=== PATIENT | female | born 1995 | race Caucasian/White ===

== ENCOUNTER 2020-10-02 12:24 | Emergency (ER) | payer MEDICAID, SELFPAY ==
[2020-10-02 12:37] VITALS: BP 120/92; PULSE 85; RESP 18; TEMP 36.7; O2SAT 100
--- NOTE | 2020-10-02 12:45 | DI.CT_ITS ---
EXAM: CT ABDOMEN PELVIS W TECHNIQUE: Imaging Protocol: Axial computed tomography images with coronal and sagittal reformatted images were created and reviewed CONTRAST MATERIAL: Intravenous: Omnipaque 350 Contrast volume:96 ml Contrast route:IV - Oral: no COMPARISON: No exams were available for comparison FINDINGS: ABDOMEN: Lung Bases: Normal where visualized. Liver: Normal density. No measurable mass. Gallbladder and biliary tract: No radiodense calculus or dilation. Pancreas: Normal density, no abnormal calcifications or inflammatory process. Spleen: Normal. Kidneys: Normal size, contour and axis. No radiodense stones or obstructive uropathy. No masses seen. Adrenal glands: No masses seen. Abdominal Aorta: Abdominal portion non-dilated. Abdominal Aorta: Abdominal portion non-dilated. Lymph nodes: With in normal limits. PELVIS: Bladder: Symmetric distention, no gross wall thickening. Bowel: Normal appendix. A large amount of stool seen throughout the colon. No obstruction or bowel wall thickening. Peritoneal cavity: No ascites, collection or mesenteric inflammatory response. Reproductive organs: There is a large, mainly fatty density lesion involving the left ovary, measurin g 6.3 cm in diameter. There is a calcification within the lesion. These are consistent with a terat amanda. A small similar appearing smaller lesion is noted on the right ovary, measuring 3 cm. There ar e no findings to suggest torsion. Retroverted uterus. Bones: Within normal limits. Impression: Bilateral ovarian dermoids, the the left measuring 6.3 cm and the right measuring 3 cm in diameter. No evidence of torsion. RADIATION DOSE DELIVERED: 838.74mGy.cm Total DLP DATA REPOSITORY: All CT scans at this facility are submitted to the National Radiology Data Registry (NRDR) Dose Index Registry (DIR) with the [employer] (ACR). RADIATION OPTIMIZATION: All CT scans at this facility use at least one of these dose optimization te chniques: automated exposure control; mA and/or kV adjustment per patient size (includes targeted exa ms where dose is matched to clinical indication); or iterative reconstruction.
--- NOTE | 2020-10-02 12:49 | ED.GENADUL_ITS ---
Discharge Plan Disposition Patient Disposition: HOME Condition: Stable Discharge Details Clinical Impression: Teratoma of pelvis Primary Care Provider: Unknown,Unknown ED Provider: Iram Ruiz Home Meds and New Rx's Prescriptions: No Action One-A-Day Womens Formula 18 mg iron-400 mcg-500 mg Tablet 2 tab PO DAILY RF: 0 Discharge Instructions Instructions: Ovarian Cyst (ED) Additional Instructions: Follow-up with [facility] within 3 to 5 days. Return to the ED for any severe increase in abdominal pain, vaginal bleeding, fever, vomiting or any concerns. Follow up with primary care provider in 3-5 days. Return to ED sooner if any worsening or concerns. Increase oral fluids. Please take Tylenol or Ibuprofen with food every 4-6 hours as needed for pain and swelling. Referrals: Maria Teresa Michael MD [ [facility] STAFF [facility]YSICIAN] - Milana Lara MD [ [facility] STAFF PHYSICIAN] - Discharge Data Discharge Date/Time-TO BE ENTERED AT DEPARTURE: 10/02/20 16:18 Medical Decision Making 24-year-old female presents to the ED with chief complaint of left upper quadrant abdominal pain x3 weeks. Pain radiates around to umbilicus area, has been seen by primary care for the same pain and had some negative lab work-up. There is associated intermittent nausea, no vomiting, no fever or dysuria. She does report constipation. Denies any vaginal bleeding or discharge. She does state that she has irregular periods and did have some breakthrough bleeding approximately 2 weeks ago. She denies any drugs or alcohol. She states she does vape daily. Work-up ordered including CBC, CMP, lipase, urinalysis, urine and will order CT abdomen pelvis. Labs are largely within normal limits. Patient reevaluation she is continue to be hemodynamically stable. Has not required any pain medications here in department. FINDINGS: Liver: Normal. No mass. Gallbladder and bile ducts: Normal. No calcified stones. No ductal dilation. Pancreas: Normal. No ductal dilation. Spleen: Normal. No splenomegaly. Adrenal glands: Normal. No mass. Kidneys and ureters: Normal. No hydronephrosis. Stomach and bowel: Large amount of stool throughout the large bowel. Appendix: Appendix normal. Intraperitoneal space: No free fluid within the pelvis or within the dependent portions of the peritoneum. Vasculature: Unremarkable. No abdominal aortic aneurysm. Lymph nodes: Unremarkable. No enlarged lymph nodes. Urinary bladder: Unremarkable as visualized. Reproductive: teratomas/dermoids on the right and left adnexa that on the left measuring approximately 6.3 cm and that on the right measuring approximately 2.9 cm. Bones/joints: Unremarkable. No acute fracture. Soft tissues: Unremarkable. Other findings: No acute intra-abdominal process. No inflammatory process. No obstruction. IMPRESSION: 1. Teratomas/dermoids on the right and left adnexa that on the left measuring approximately 6.3 cm and that on the right measuring approximately 2.9 cm. 2. No acute intra-abdominal process. No inflammatory process. No obstruction. 3. No free fluid within the pelvis or within the dependent portions of the peritoneum. 4. Large amount of stool throughout the large bowel. 5. Appendix normal. 1509: [facility] paged to consult. 1550: [facility] is busy in a at this time awaiting callback. 1555: Spoke with Maria Teresa Michael [facility] who I discussed patient case in details with she recommends follow-up with [facility] in the near future no further recommendations given to her treatment currently. We discussed home care with patient strict return instructions, verbalized understanding. All of her questions and concerns were answered to the best my ability. This text was generated using [employer] unlimited dictation system, please disregard any oddities of phrase or misspellings. HPI General Mode of arrival: ambulatory . Date/Time Provider Initiated Documentation: 10/02/20 12:38 . Limitations to Documentation: no limitations . Information obtained by: patient . HPI Narrative: 24-year-old female presents to the ED with chief complaint of left upper quadrant abdominal pain x3 weeks. Pain radiates around to umbilicus area, has been seen by primary care for the same pain and had some negative lab work-up. There is associated intermittent nausea, no vomiting, no fever or dysuria. She does report constipation. Denies any vaginal bleeding or discharge. She does state that she has irregular periods and did have some breakthrough bleeding approximately 2 weeks ago. She denies any drugs or alcohol. She states she does vape daily. Related Data Home Medications Medication Instructions Recorded Confirmed [id number] carb-vit K 2 tab PO DAILY 10/02/20 10/02/20 [One-A-Day Womens Formula] Allergies Allergy/AdvReac Type Severity Reaction Status Date / Time No Known Allergies Allergy Unverified 10/02/20 12:43 General Stated Complaint: Abd Prob JAX: 3 Review of Systems Narrative: Constitutional: Negative for weight loss, alert and oriented, well groomed, normal body habitus, appears comfortable. HEENT: Denies trauma, headaches, blurry vision, nasal discharge, sore throat, trouble swallowing. Chest: Denies chest pain, palpitations, irregular rhythm, hypertension. Respiratory: Denies Shortness of breath, cough, hemoptysis. GI: Denies vomiting, diarrhea, positive left upper quadrant abdominal pain, positive constipation. : Denies dysuria, hematuria, flank pain, rectal bleeding. Neuro: Denies dizziness, blurry vision, weakness, syncope, headache or facial numbness. Hematologic: Denies easy bruising, intolerance to heat or cold, hair loss. [facility] Social History Smoking/Tobacco Use Status: Current every day Tobacco Type: e-cigarettes Smoking risk assessment performed?: Yes Alcohol Intake: current Alcohol Intake frequency: holidays/special occasions only Substance use type: does not use Do you feel safe at home: Yes Do you feel safe in your relationship?: Yes Exam Narrative Exam Narrative: Constitutional: Alert and oriented x3. Appears stated age. Normal body habitus. Head: Normocephalic, no trauma. Eyes: Pupils PERRLA, Red reflex noted, EOM's intact. Eyelids symmetrical without lesions, discharge, or swelling. ENT: Bilateral TM's WNL, External ear normal to inspection, no mastoid TTP, swelling, or erythema, Nasal turbinates WNL, no nasal discharge. Normal dentition, Posterior pharynx WNL, no exudate. Chest: RRR, Normal S1, S2, distal pulses intact. Resp: Lungs clear to auscultation bilaterally, no wheezes, rales, or rhonchi. Abdomen: Soft, nondistended, bowel sounds normoactive all 4 quadrants, does have some mild left upper quadrant tenderness with palpation. No CVA tenderness bilaterally. Musculoskeletal: Normal gait, 5/5 strength to all four extremities. Skin: No suspicious rashes or lesions. Capillary refill less than 2 sec. Neurologic: Cranial nerves II-XII intact. Alert and oriented x 3. DTR's intact. Hematologic/Lymphatic: No ecchymosis, no lymphadenopathy. Course Vital Signs Vital signs: Vital Signs Temperature 36.7 C 10/02/20 12:37 Pulse 85 10/02/20 12:37 Respiratory Rate 18 10/02/20 12:37 Blood Pressure 120/92 H 10/02/20 12:37 Pulse Oximetry 100 10/02/20 12:37 Temperature 36.7 C 10/02/20 12:37 Temperature Source Skin 10/02/20 12:37 Pulse 85 10/02/20 12:37 Respiratory Rate 18 10/02/20 12:37 Respiratory Effort 10/02/20 12:41 Blood Pressure 120/92 H 10/02/20 12:37 Blood Pressure Position Sitting 10/02/20 12:37 Pulse Oximetry 100 10/02/20 12:37 Oxygen Delivery Method Room Air 10/02/20 12:37 Oxygen Flow Rate 0 10/02/20 12:37 Pain Level 0 10/02/20 12:37
[2020-10-02 13:03] LABS: Bilirubin Negative (Negative); Blood Negative (Negative); Clarity Clear (Clear); Glucose Negative (Negative); Ketones Negative (Negative); Leukocyte Esterase Negative (Negative); Nitrite Negative (Negative); Specific Gravity 1.015 (1.005-1.025); Urobilinogen 0.2 EU/dL (Up TO 0.2)
[2020-10-02 13:08] LABS: Abs Immature Grans 0.02 10^3/uL (0.0-0.06); Absolute Basophil Count 0.04 10^3/uL (0.0-0.2); Absolute Eosinophil Count 0.29 10^3/uL (0.0-0.7); Absolute Lymphocyte Count 1.77 10^3/uL (1.2-3.4); Absolute Monocyte Count 0.39 10^3/uL (0.1-0.8); Absolute Neutrophil Count 3.39 10^3/uL (1.2-6.7); Basophils % 0.7; Eosinophils % 4.9; HGB 14.5 g/dL (11.2-15.7); Immature Grans % 0.3; MCH 28.7 pg (27.0-33.0); MCV 87.1 fL (80-95); Monocytes % 6.6; Neutrophils % 57.5; Nucleated RBC 0 %; Platelet Count 254 10^3/uL (130-400); RBC 5.05 10^6/uL (3.93-5.22); RDW 12.2 % (11.7-14.6); RDW-SD 39.2 fL
[2020-10-02] MEDS: Normal Saline 1,000 ML 125 ML IV (13:14)
[2020-10-02 13:21] LABS: ALT 21 U/L (14-59); AST 7 U/L (15-37); Albumin 4.2 g/dL (3.4-5.0); Alkaline Phosphatase 52 U/L (46-116); Anion Gap 4.9 mmol/L (3-11); BUN 9 mg/dL (7-18); Bilirubin, Total 0.4 mg/dL (0.2-1.0); CO2 28.1 mmol/L (21.0-32.0); CREATININE 0.8 mg/dL (0.55-1.02); Calcium 8.7 mg/dL (8.5-10.1); Chloride 104 mmol/L (98-107); Glucose 82 mg/dL (74-106); Lipase 107 U/L (73-393); Sodium 137 mmol/L (136-145); Total Protein 7.5 g/dL (6.4-8.2)
[2020-10-02] MEDS: Normal Saline - Diluent 50 ML VIAL IV (13:42)
[2020-10-02] MEDS: Omnipaque 350 MG/ML 100 ML BTL IJ (13:42)
[2020-10-02] MEDS: Normal Saline Flush 10 ML SYR IVP (13:52)
--- NOTE | 2020-10-02 14:54 | DI.VRAD_ITS ---
PROCEDURE INFORMATION: Exam: CT Abdomen And Pelvis With Contrast Exam date and time: 10/02/2020 1:50 PM Age: 24 years old Clinical indication: Other: Luq abd pain TECHNIQUE: Imaging protocol: Computed tomography of the abdomen and pelvis with contrast. Contrast material: OMNIPAQUE 350; Contrast volume: 96 ml; Contrast route: INTRAVENOUS (IV); COMPARISON: No relevant prior studies available. FINDINGS: Liver: Normal. No mass. Gallbladder and bile ducts: Normal. No calcified stones. No ductal dilation. Pancreas: Normal. No ductal dilation. Spleen: Normal. No splenomegaly. Adrenal glands: Normal. No mass. Kidneys and ureters: Normal. No hydronephrosis. Stomach and bowel: Large amount of stool throughout the large bowel. Appendix: Appendix normal. Intraperitoneal space: No free fluid within the pelvis or within the dependent portions of the peritoneum. Vasculature: Unremarkable. No abdominal aortic aneurysm. Lymph nodes: Unremarkable. No enlarged lymph nodes. Urinary bladder: Unremarkable as visualized. Reproductive: teratomas/dermoids on the right and left adnexa that on the left measuring approximately 6.3 cm and that on the right measuring approximately 2.9 cm. Bones/joints: Unremarkable. No acute fracture. Soft tissues: Unremarkable. Other findings: No acute intra-abdominal process. No inflammatory process. No obstruction. IMPRESSION: 1. Teratomas/dermoids on the right and left adnexa that on the left measuring approximately 6.3 cm and that on the right measuring approximately 2.9 cm. 2. No acute intra-abdominal process. No inflammatory process. No obstruction. 3. No free fluid within the pelvis or within the dependent portions of the peritoneum. 4. Large amount of stool throughout the large bowel. 5. Appendix normal. Dictated and Authenticated by: Eduin Valdez MD. Ordering:CINTHIA Walden MD
[2020-10-02 15:31] LABS: HCG Quant, Pregnancy 1 mIU/mL (1-3)
[2020-10-02 16:16] VITALS: BP 97/64; TEMP 36.4
== END 2020-10-02 16:18 | disposition home or self-care (01) ==
PROVIDERS: Emergency Provider Registered Nurse Emergency
DX: D27.0 Benign neoplasm of right ovary (principal); D27.1 Benign neoplasm of left ovary
CPT/HCPCS: 36415; 80053; 81025; 83690; 96360; 96361; 99285; 74177; 81003; 83735; 84702; 85025; 99284; J3490

== ENCOUNTER 2020-10-31 10:45 | Outpatient (CLI) | payer MEDICAID, SELFPAY ==
[2020-10-31 12:02] LABS: Source Nasal/Nares
[2020-10-31 12:15] LABS: HGB 14.1 g/dL (11.2-15.7); MCH 28.9 pg (27.0-33.0); MCHC 33.6 % (32.0-36.0); MCV 86.1 fL (80-95); MPV 11.1 fL (8.0-11.0); Platelet Count 273 10^3/uL (130-400); RBC 4.88 10^6/uL (3.93-5.22); RDW 12.3 % (11.7-14.6); WBC 7.55 10^3/uL (4.4-10.8)
[2020-10-31 12:20] LABS: Anion Gap 6.5 mmol/L (3-11); BUN 13 mg/dL (7-18); CO2 27.5 mmol/L (21.0-32.0); Chloride 107 mmol/L (98-107); Potassium 4.3 mmol/L (3.5-5.1); Sodium 141 mmol/L (136-145)
[2020-10-31 15:20] LABS: COVID-19 PCR Negative (Negative)
== END 2020-10-31 10:46 | disposition home or self-care (01) ==
LOC: LBO 10:46
PROVIDERS: Visit Provider Obstetrics & Gynecology Gynecology
DX: D36.7 Benign neoplasm of other specified sites (principal); R10.12 Left upper quadrant pain; N91.5 Oligomenorrhea, unspecified; Z01.818 Encounter for other preprocedural examination; Z01.812 Encounter for preprocedural laboratory examination
CPT/HCPCS: 36415; 80051; 84520; 85027; 86850; 86900; 86901

== ENCOUNTER 2020-11-02 07:28 | Day surgery (SDC) | payer MEDICAID, SELFPAY ==
[2020-11-02] VITALS (8 sets, daily range): BP systolic 100–126; BP diastolic 49–75; PULSE 48–80; RESP 11–21; TEMP 36.1–36.5; O2SAT 97–100
[2020-11-02] MEDS: Lactated Ringers 1,000 ML 125 ML IV (08:14)
--- NOTE | 2020-11-02 11:40 | OVAR_PTH ---
PATIENT: Sonam Reno LOC: [facility] U#:[id number] AGE/SX: 24/F ROOM: RE11/02/[address]: Milana Lara : 1995 BED: DIS: 11/02/2020 SPEC #: [id number] RECD: 11/02/20 12:55 STATUS: SAVANNAH REOlivier #: [id number] SMITH: 11/02/20 11:[address]: Milana Lara DEPT: Surgical Specimen RECD BY: Teri Pedro ENTERED: 11/02/20 12:56 SP TYPE: JOANA BARRIOS DR: Lore Milligan Tissues: 1 - OVARY BIOPSY 2 - OVARY BIOPSY Procedures: GROSS AND MICRO LEVEL 5 Comments: [id number]
[2020-11-02] MEDS: Bupivacaine 0.25% Pres-Free 30 ML VIAL (12:30)
--- NOTE | 2020-11-02 12:45 | W.PM.DSUDISC ---
Discharge Plan Disposition Patient Disposition: HOME Condition: Fair Discharge Details Attending Provider: Milana Lara Primary Care Provider: Lore Milligan Home Meds and New Rx's Prescriptions: No Action One-A-Day Womens Formula 18 mg iron-400 mcg-500 mg Tablet 2 tab PO DAILY RF: 0 Discharge Instructions Additional Instructions: make an appointment for a 2 week postop check with Dr. Lara You may take Ibuprofen and percocet every 6 hours. I have called in a prescription for both medications to your pharmacy You have a ParaGard IUD inside your uterus. Once a month you should check your cervix for the string at the opening to your uterus. You may remove the skin glue covering your incisions in 4 days. Stand Alone Forms: DSU Post Gynecology Surgery Activity:: Activity as Tolerated Diet:: As Tolerated Discharge Orders Discharge Orders: Discharge Order (Routine); Ordered 11/02/20 Ordered By: Milana Lara DS: Diagnosis Discharge Diagnosis (1) Mature cystic teratoma of both ovaries: Status: Acute (2) H/O ovarian cystectomy: Status: Acute
[2020-11-02] MEDS: fentaNYL 100 MCG/2 ML VIAL IVP ×2 (13:26→13:39)
--- NOTE | 2020-11-03 17:00 | W.PM.OP ---
Operative Note Operative Note DATE OF PROCEDURE: 11/02/20 PRE-OP DIAGNOSIS: bilateral ovarian dermoid cysts, Pelvic pain, menstrual irregularity POST-OP DIAGNOSIS: same PROCEDURE: Bilateral laparoscopic ovarian cystectomies SURGEON: Milana Lara DEPUTY CORONER INVESTIGATOR: Yessi Stahl ANESTHESIA TYPE: General LMA/ETT Refer to Anesthesia Record ESTIMATED BLOOD LOSS: 50 PATHOLOGY: other (Left and right ovarian teratomas) COMPLICATIONS: None Patient was transported to: PACU Patient's condition: stable Indications: 24yo G0 female with diagnosis ofsymptomatic bilateral ovarian teratomas who requested definitive therapy. Teratomas were diagnosed at the time of a [facility] emergency visit for abdominal pain. Findings: Left ovary, enlarged with smooth walled ovarian cyst that had contents of woods liquid fat and blond hair. The right ovary was considerably smaller and was not opened during the procedure. Procedure Description: Patient was taken to the operating room where she is placed in the dorsal supine position and general endotracheal anesthesia administered without difficulty. She was then placed in the dorsal lithotomy position prepped and draped in the usual sterile fashion. A Wilkinson catheter was placed to gravity drainage and a Tara uterine manipulator was inserted into the uterus and remained in place during the surgical procedure. SCDs were applied. No antibiotics were required. A surgical timeout was performed. The umbilical fold was infiltrated with quarter percent Marcaine without epinephrine. A scalpel was then used to make a 12mm vertical skin incision in the umbilical fold. Two penetrating towel clips were used to tent up the skin and through the periumbilical incision and a Veres needle was introduced into the abdomen and intra-abdominal placement confirmed by a drop in the intra-abdominal pressure. Once a pneumoperitoneum was established a 12 mm Visiport was placed under direct visualization and intra-abdominal placement confirmed by use of the laparoscope. Patient was then placed in Trendelenburg position. The skin was then infiltrated with quarter percent Marcaine without epinephrine at two sites approximately 6 cm diagonally from the umbilical port and the skin incised and two 5 mm lower ports were placed under direct visualization. The pelvis was carefully inspected. The left ovary was approximately 7 centimeters in diameter smooth and smooth walled. A monopolar scissors was then used to cauterize and incise the serosal surface of the ovary exposing a tissue plane that was carefully dissected off of the underlying cyst. Approximately two thirds of the cyst wall was exposed when there was a puncture of the cyst wall and woods liquid lipid leak from the cyst. Suction aspirator was used to irrigate and aspirate the contents of the left ovarian cyst that had leaked out into the abdominal cavity. Once cyst fluid had been aspirated the remaining ovarian serosa was from the cyst wall and the cyst removed from the body of the ovary. The left teratoma was then placed in Endo Catch bag and delivered through the 12 mm umbilical port. Once again the operative abdomen and pelvis was copiously irrigated with normal saline and the fluid suctioned aspirated. Right adnexa where the serosal surface of the right ovary was cauterized with monopolar scissors and incised with the scissors which allowed the serosal surface to be peeled off of the underlying right ovarian teratoma. The intact teratoma was then freed from the right ovary, placed in Endo Catch bag, and delivered through the 12 mm port without complication. The specimen bed on the right ovary with the cyst had been extracted was hemostatic. A LigaSure bipolar electrocautery device was used to cauterize any bleeding areas on the specimen bed of the left ovary. This the pelvis and the specimen sites of the teratomas were copiously irrigated and suction aspirated with excellent hemostasis noted and no remaining teratoma contents in the upper abdomen, pelvis sidewalls or cul-de-sac. The lower 2 trochars were removed under direct visualization, the pneumoperitoneum reduced and the 12 mm trocar was removed. Rectus fascia was reapproximated with interrupted suture of 0 Vicryl and the skin of all trocar sites was reapproximated using 4-0 Monocryl. Skin glue was applied to the incisions. The patient was awakened extubated and transported recovery in stable condition all sponge lap needle counts correct x2.
== END 2020-11-02 15:14 | disposition home or self-care (01) ==
PROVIDERS: PCP Family Medicine; Visit Provider Obstetrics & Gynecology Gynecology
PROC: (CPT 58662; principal; 2020-11-02 09:00)
DX: D27.1 Benign neoplasm of left ovary (principal); D27.0 Benign neoplasm of right ovary; F17.210 Nicotine dependence, cigarettes, uncomplicated; N92.6 Irregular menstruation, unspecified
CPT/HCPCS: 58662; 88305; 88307; J1100; J1885; J2250; J2405; J2704; J3010

== ENCOUNTER 2020-12-14 23:38 | Emergency (ER) | payer MEDICAID, SELFPAY ==
--- NOTE | 2020-12-14 23:43 | ED.GENADUL_ITS ---
Discharge Plan Disposition Patient Disposition: HOME Condition: Good Discharge Details Clinical Impression: Symptoms involving urinary system, Abdominal cramping, Constipation Primary Care Provider: Lore Milligan ED Provider: Tom Balderrama Home Meds and New Rx's Prescriptions: Continued ParaGard T 380A 380 square mm intrauterine device 1 device intrauterine ONCE RF: 0 Discharge Instructions Instructions: Constipation (ED) Additional Instructions: Your urine does not appear to be infected based on laboratory findings. Your blood work is also unremarkable. Unclear why all the urinary symptoms this evening. May be related to bladder spasm. Your abdominal exam itself is benign. Would try increasing water intake, fiber intake and using MiraLAX once a day for your constipation. If you continue to have urinary symptoms, abdominal cramping, follow-up with primary care or with [facility]. Return to ED for worsening/persistent abdominal pain, repeated vomiting, fever, other concerns. Referrals: [facility] [Provider Group] Lore Milligan [Primary Care Provider] - Medical Decision Making Patient presenting with onset of urinary symptoms this evening which certainly appeared to be UTI related. Second complaint of abdominal cramping and nausea with associated constipation over the last 5 days. She is afebrile here and looks well. Vitals are normal. Abdomen is benign. She is not having abdominal pain currently. Patient laparoscopic surgery but unremarkable postop course. Just seen by [facility] last week for IUD check. I do not think imaging is necessary at this point in regards to her abdominal pain. Urine and urinalysis sent. Will check abdominal labs to be sure no significant abnormalities. Patient urine negative. Urinalysis dip positive for trace ketones and trace blood. Microscopic is negative for UTI. Patient was treated with Pyridium for urinary symptoms. No antibiotic given. White count normal. Chemistry unremarkable. Liver function and lipase normal. Unclear etiology for patient's urinary symptoms unless she has developed bladder spasms tonight. There is no evidence of UTI. Abdomen again benign on exam and patient without pain currently. Recommend managing the constipation with increase fluid intake, increase fiber intake, MiraLAX usage daily until soft stool. If continued significant urinary symptoms or continue abdominal cramping and discomfort follow-up with primary care or [facility]. Return to ED for wors ening/persistent abdominal pain, fever, back pain, persistent vomiting, other concerns. Medical Records Medical records reviewed: Yes I reviewed the patient's medical records. Medical records narrative: Patient status post laparoscopic ovarian cystectomy a little over 1 month ago. Lab Data Lab results reviewed: Yes I reviewed the patient's lab results. Lab results narrative: No evidence of UTI. Unremarkable laboratory studies. HPI General Mode of arrival: ambulatory . Date/Time Provider Initiated Documentation: 12/14/20 23:40 . Limitations to Documentation: no limitations . Information obtained by: patient, RN notes reviewed and old records reviewed . HPI Narrative: Patient presents to with complaint of dysuria, frequency, urgency that started this evening. Patient also reports abdominal cramping in the periumbilical area on and off for the last 5 days. She is having difficulty eating or drinking because it seems to make the cramping worse. It also seems to make her nauseated but she has not had any vomiting. She feels bloated and reports constipation though she has had bowel movements they have not been normal for her. The week before she was seen for an IUD check. She was having significant menstrual cramps at that time. Since then menstruation cycle has stopped and the pelvic pain has resolved. The abdominal cramping seems different to her. The urinary symptoms were sudden onset this evening. She denies any fever or chills. She denies any back or flank pain. She has not seen blood in her urine. She does not have abdominal pain at this point in time here in the emergency department. Related Data Home Medications Medication Instructions Recorded Confirmed copper 380 square mm intrauterine 1 device INTRAUTERINE ONCE 12/02/20 12/15/20 device Allergies Allergy/AdvReac Type Severity Reaction Status Date / Time No Known Allergies Allergy Unverified 12/15/20 00:08 General JAX: 3 Review of Systems Narrative: As documented in HPI otherwise negative as below. Const: no fever, chills, weakness Resp: no cough, SOB, pleuritic pain CV: no CP, diaphoresis, edema, syncope GI: no vomiting, diarrhea Neuro: no headache, numbness, focal weakness, confusion PFSH Medical History Mature cystic teratoma of both ovaries 11/03/20. Bilateral ovarian cystectomy Oligomenorrhea previous hx prior to teratoma removal Tobacco use Surgical History H/O ovarian cystectomy 11/02/20. Laparoscopic bilateral ovarian cystectomy of teratomas. H/O wisdom tooth extraction Family History Mother Cancer Melanoma on her face. S/p surgical excision Father Heart disease Social History Smoking/Tobacco Use Status: Former Tobacco Use Quit Date: 10/18/20 Smoking risk assessment performed?: Yes Alcohol Intake: current Alcohol Intake frequency: holidays/special occasions only Drug use: Never Substance use type: does not use Do you feel safe at home: Yes Do you feel safe in your relationship?: Yes Exam Narrative Exam Narrative: Const: WDWN female in NAD. HEENT: NC/AT. Normal facial exam. Eyes: Normal conjunctiva and sclera. Neck: Supple. Trachea midline. Lungs: Normal respiratory effort. Cor: Good radial pulses. GI: Soft. NT/ND. No guarding or rebound. Pelvic: Deferred Neuro: A+O x 3. Normal speech, mentation, gait. Cranial nerves II - XII grossly intact. No gross motor or sensory deficit. Ext: No C/C/E. Skin: Warm and dry without rash.
[2020-12-14 23:44] VITALS: BP 108/70; PULSE 60; RESP 16; TEMP 36.7; O2SAT 100
[2020-12-15] MEDS: Phenazopyridine 100 MG TAB PO (00:15)
[2020-12-15 00:30] LABS: Abs Immature Grans 0.04 10^3/uL (0.0-0.06); Absolute Basophil Count 0.06 10^3/uL (0.0-0.2); Absolute Eosinophil Count 0.58 10^3/uL (0.0-0.7); Absolute Lymphocyte Count 3.23 10^3/uL (1.2-3.4); Absolute Monocyte Count 0.54 10^3/uL (0.1-0.8); Absolute Neutrophil Count 5.22 10^3/uL (1.2-6.7); Basophils % 0.6; HCT 39.7 % (36.0-46.0); HGB 13.5 g/dL (11.2-15.7); Immature Grans % 0.4; Lymphocytes % 33.4; MCH 29.3 pg (27.0-33.0); MCV 86.3 fL (80-95); MPV 10.9 fL (8.0-11.0); Monocytes % 5.6; Nucleated RBC 0 %; Platelet Count 312 10^3/uL (130-400); RDW 12.4 % (11.7-14.6); RDW-SD 38.8 fL; WBC 9.67 10^3/uL (4.4-10.8)
[2020-12-15 00:41] LABS: Bilirubin Negative (Negative); Blood Trace-intact (Negative); Clarity Clear (Clear); Glucose Negative (Negative); Ketones Trace mg/dL (Negative); Leukocyte Esterase Negative (Negative); Nitrite Negative (Negative); Specific Gravity 1.025 (1.005-1.025); Urobilinogen 0.2 EU/dL (Up TO 0.2)
[2020-12-15 00:44] LABS: RBC 0-2 HPF (0-2); WBC Negative HPF (0-5)
[2020-12-15 00:45] LABS: Bacteria Rare HPF (Negative); C & S Indicated? No; Casts Negative LPF (Negative); Crystals Negative HPF (Negative); Epithelial Cells Rare HPF (Negative); Mucus Negative (Negative)
[2020-12-15 00:47] LABS: ALT 23 U/L (14-59); AST 9 U/L (15-37); Albumin 4.2 g/dL (3.4-5.0); Alkaline Phosphatase 47 U/L (46-116); Anion Gap 11.7 mmol/L (3-11); BUN 18 mg/dL (7-18); Bilirubin, Total 0.3 mg/dL (0.2-1.0); CO2 25.3 mmol/L (21.0-32.0); CREATININE 0.9 mg/dL (0.55-1.02); Calcium 9.1 mg/dL (8.5-10.1); Chloride 104 mmol/L (98-107); Glucose 99 mg/dL (74-106); Lipase 107 U/L (73-393); Potassium 3.7 mmol/L (3.5-5.1); Sodium 141 mmol/L (136-145); Total Protein 7.4 g/dL (6.4-8.2)
== END 2020-12-15 01:12 | disposition home or self-care (01) ==
PROVIDERS: Emergency Provider Emergency Medicine; PCP Family Medicine
DX: R10.33 Periumbilical pain (principal); R30.0 Dysuria; R35.0 Frequency of micturition; K59.00 Constipation, unspecified
CPT/HCPCS: 36415; 80053; 81025; 83690; 99283; 81003; 81015; 85025

== ENCOUNTER → 2022-01-31 02:57 | Outpatient (CLI) | payer MEDICAID, SELFPAY | PROVIDERS: PCP Family Medicine; Visit Provider Registered Nurse Maternal Newborn ==

== ENCOUNTER 2023-06-07 12:12 | Emergency (ER) | payer MEDICAID, SELFPAY ==
[2023-06-07 12:14] VITALS: BP 111/78; PULSE 90; RESP 20; TEMP 36.9; O2SAT 97
--- NOTE | 2023-06-07 12:30 | DI.US_ITS ---
Exam(s) US PELVIS TRANSVAGINAL EXAM: US PELVIS TRANSVAGINAL CLINICAL HISTORY: heavy vaginal bleeding TECHNIQUE: Transabdominal and transvaginal imaging was performed using standard protocol. COMPARISON: CT CT ABDOMEN PELVIS W from 10/02/2020 FINDINGS: UTERUS: Retroverted. 6.0 x 2.7 x 4.2 cm Endometrium: IUD in place within endometrium. No endometrial thickening. Myometrium: Unremarkable. Cervix: Unremarkable. OVARIES: Right: Cyst or mass: None. Left: Cyst or mass: Echogenic shadowing lesion adjacent to the left ovary measuring 2.8 x 2.4 x 2.6 c m. This may represent a fatty teratoma. Patient has a history of previous teratomas with removal in 2020. DOPPLER: Color: Symmetric and uniform flow to both ovaries. No hyperemia. CUL-DE-SAC: Free fluid: None. IMPRESSION: 1. Normal-appearing uterus with IUD in place. 2. 2.8 centimeter echogenic left adnexal region could represent a teratoma. CT or MRI could be perfo rmed for further evaluation. DATA REPOSITORY:
--- NOTE | 2023-06-07 12:37 | ED.GENADUL_ITS ---
Discharge Plan Disposition Patient Disposition: Home Condition: Good Discharge Details Clinical Impression: Abnormal vaginal bleeding Primary Care Provider: Lore Milligan ED Provider: Joycelyn Fajardo Home Meds and New Rx's Prescriptions: No Action spironolactone 50 mg tablet 50 mg PO DAILY Patient Comments: has not taken in years 06/07/23 fluticasone propionate [Flonase Allergy Relief] 50 mcg/actuation spray,suspension 2 spray intranasal DAILY Rx Instructions: administer into each nostril ParaGard T 380A 380 square mm intrauterine device 1 device intrauterine ONCE Rx Instructions: as a single dose escitalopram oxalate 5 mg tablet 5 mg PO DAILY lisdexamfetamine [Vyvanse] 30 mg capsule 30 mg PO DAILY Patient Comments: TAKE ONE CAPSULE BY MOUTH EVERY MORNING Discharge Instructions Instructions: Abnormal (Dysfunctional) Uterine Bleeding (ED) Additional Instructions: Call your [employer] provider today to schedule an appointment to followup on your visit here and to discuss your ultrasound results. Return to the emergency department for new or worsening symptoms, including lightheadedness, feeling like you are going to pass out, or if you have any other concerns. Medical Decision Making 27yo F with hx of irregular periods, teratoma removal in 2020, copper IUD in place, presenting with heavy vaginal bleeding for 5 days, consistently saturating a pad in less than hour. No symptomatic anemia, mild uterine cramping consistent with her typical periods. Vital signs reassuring, no tachycardia. After labs drawn, slightly nauseated; given PO zofran with good effect. On exam she has scant blood in the vaginal vault, slow bleeding from cervical os. Labs reviewed as below, CBC & CMP reassuring with no anemia, serum negative. Pelvic ultrasound as below, possible left teratoma. On reassessment she remains well appearing with reassuring vital signs, hemodynamically stable, asymptomatic. Appropriate to followup with her outpatient providers. Discharged home; discharge instructions including return precautions were reviewed with patient who verbalized understanding. All questions were answered and they are in full agreement with the plan. Imaging Data Radiologic Study: Imaging: Ultrasound Radiologist's impression: IMPRESSION: 1. Normal-appearing uterus with IUD in place. 2. 2.8 centimeter echogenic left adnexal region could represent a teratoma.? CT or MRI could be performed for further evaluation. Lab Data Lab results reviewed: Yes I reviewed the patient's lab results. Labs: Laboratory Tests Range/Units 06/07/23 06/07/23 12:50 12:50 WBC (4.4-10.8) 10^3/uL 5.11 RBC (3.93-5.22) 10^6/uL 4.52 Hgb (11.2-15.7) g/dL 13.2 Hct (36.0-46.0) % 39.3 MCV (80-95) fL 87 MCH (27.0-33.0) pg 29.2 MCHC (32.0-36.0) % 33.6 RDW (11.7-14.6) % 12.3 Plt Count (130-400) 10^3/uL 264 MPV (8.0-11.0) fL 10.7 Immature Gran % 0.2 Neutrophils % 56.3 Lymphocytes % 32.1 Monocytes % 6.1 Eosinophils % 4.5 Basophils % 0.8 Nucleated RBC % (0.0-0.3) % 0.0 Absolute Neutrophils (1.2-6.7) 10^3/uL 2.88 Absolute Lymphocytes (1.2-3.4) 10^3/uL 1.64 Absolute Monocytes (0.1-0.8) 10^3/uL 0.31 Absolute Eosinophils (0.0-0.7) 10^3/uL 0.23 Absolute Basophils (0.0-0.2) 10^3/uL 0.04 Sodium (136-145) mmol/L 137 Potassium (3.5-5.1) mmol/L 3.8 Chloride (98-107) mmol/L 103 Carbon Dioxide (21.0-32.0) mmol/L 27.3 Anion Gap (3-11) mmol/L 6.7 BUN (7-18) mg/dL 16 Creatinine (0.55-1.02) mg/dL 0.8 Est GFR (CKD-EPI 2020) (mL/min/1.73m2) 103.50 Glucose (74-106) mg/dL 112 H Calcium (8.5-10.1) mg/dL 8.7 Total Bilirubin (0.2-1.0) mg/dL 0.3 AST (15-37) U/L 9 L ALT (14-59) U/L 29 Alkaline Phosphatase (46-116) U/L 47 Total Protein (6.4-8.2) g/dL 7.0 Albumin (3.4-5.0) g/dL 3.8 Beta HCG, Quant (1-3) mIU/mL < 1 L HPI General Mode of arrival: ambulatory . Date/Time Provider Initiated Documentation: 06/07/23 12:16 . Limitations to Documentation: no limitations . Information obtained by: patient . HPI Narrative: 27yo F with hx of irregular periods, teratoma removal in 2020, copper IUD in place, presenting with heavy vaginal bleeding for 5 days. Prior menstrual period about 3 weeks ago. Last 5 days has had heavy persistent bleeding, consistently saturating a pad in less than hour. Passing many small stringy clots. Mild to moderate uterine cramping typical of her usual periods. No malodour or unusual vaginal discharge. No lightheadedness, palpitations, or shortness of breath. She is otherwise in her usual state of health. Related Data Home Medications Medication Instructions Recorded Confirmed copper 380 square mm intrauterine 1 device intrauterine ONCE 12/02/20 06/07/23 device (ParaGard T 380A) spironolactone 50 mg tablet 50 mg PO DAILY 02/27/21 05/09/21 escitalopram oxalate 5 mg tablet 5 mg PO DAILY 11/30/21 06/07/23 fluticasone propionate 50 2 spray intranasal DAILY 12/04/21 06/07/23 mcg/actuation nasal spray,suspension (Flonase Allergy Relief) lisdexamfetamine 30 mg capsule 30 mg PO DAILY 06/07/23 06/07/23 (Vyvanse) Allergies Allergy/AdvReac Type Severity Reaction Status Date / Time No Known Allergies Allergy Unverified 06/07/23 12:19 General Stated Complaint: [employer] JAX: 3 Review of Systems Narrative: see HPI PFSH All Active Problems Abnormal vaginal bleeding (Acute) Encounter for screening for other viral diseases (Acute) Sinus pain (Acute) Abnormal uterine bleeding (AUB) (Acute) 2yrs oligomenorrhea prior to 10/2020 teratoma removal. 01/2021. regular cycles but BTB with ParaGard in place. IUD (intrauterine device) in place (Acute) 11/11/20. ParaGard placed. Symptoms involving urinary system (Acute) Abdominal cramping (Acute) Constipation (Acute) General counseling and advice for contraceptive management (Acute) Tobacco use (Acute) Medical History (Updated 06/07/23 @ 15:16 by Joycelyn Fajardo MD) ADHD Anxious depression Family history of melanoma Irregular menses Macromastia Melanocytic nevus removed 2010 Oligomenorrhea, unspecified Ovarian teratoma Removed w/ paragard IUD placement 2020 PCOS (polycystic ovarian syndrome) Surgical History (Updated 12/04/21 @ 14:33 by Jailyn RAY) H/O ovarian cystectomy 11/02/20. Laparoscopic bilateral ovarian cystectomy of teratomas. H/O wisdom tooth extraction Status post excisional biopsy Family History (Updated 11/30/21 @ 08:43 by Meaghan Merritt) Mother Amelanotic melanoma Cancer Hypothyroid Father , d. 65 CAD (coronary artery disease) Myocardial infarction Family history of melanoma Social History (Updated 12/04/21 @ 14:34 by Jailyn RAY) Smoking/Tobacco Use Status: Former Tobacco Use Quit Date: 10/18/20 Smoking risk assessment performed?: Yes Alcohol Intake: current Alcohol Intake frequency: holidays/special occasions only Drug use: Never Substance use type: does not use Household members: family Number of Children: 0 Education Level: college current occupation: guide at [employer] How often do you talk on the phone with friends or family?: three or more times per week Panel score (0-1 are the most socially isolated patients): 1 Do you feel safe at home: Yes Do you feel safe in your relationship?: Yes Exam Narrative Exam Narrative: General: Alert, well appearing, well nourished, in no acute distress. Head: Normocephalic, atraumatic Neck: Trachea midline, Neck supple. ENT: MMM. No oropharygeal lesions or exudate. Cardiac: RRR, no murmurs appreciated Resp: No respiratory distress. CTAB. Abd: Soft, non-distended, nontender : No suprapubic tenderness. No CVA tenderness. Extremities: No deformities. No peripheral edema. Neurologic: GCS 15. Moves all extremities freely against gravity Pelvic: Normal external genitalia with no lesions. Normal vaginal mucousa. Scant blood in the vaginal vault. Cervix pink, slow bleeding from cervical os. Course Vital Signs Vital signs: Vital Signs Temperature 36.9 C 06/07/23 12:14 Pulse 90 06/07/23 12:14 Respiratory Rate 20 06/07/23 12:14 Blood Pressure 111/78 06/07/23 12:14 Pulse Oximetry 97 06/07/23 12:14 Temperature 36.9 C 06/07/23 12:14 Temperature Source Skin 06/07/23 12:14 Pulse 90 06/07/23 12:14 Respiratory Rate 20 06/07/23 12:14 Blood Pressure 111/78 06/07/23 12:14 Blood Pressure Position Sitting 06/07/23 12:14 Pulse Oximetry 97 06/07/23 12:14 Oxygen Delivery Method Room Air 06/07/23 12:14 Oxygen Flow Rate 0 06/07/23 12:14 Pain Level 5 06/07/23 12:14
[2023-06-07 12:55] LABS: Abs Immature Grans 0.01 10^3/uL (0.0-0.06); Absolute Basophil Count 0.04 10^3/uL (0.0-0.2); Absolute Eosinophil Count 0.23 10^3/uL (0.0-0.7); Absolute Lymphocyte Count 1.64 10^3/uL (1.2-3.4); Absolute Monocyte Count 0.31 10^3/uL (0.1-0.8); Absolute Neutrophil Count 2.88 10^3/uL (1.2-6.7); Basophils % 0.8; Eosinophils % 4.5; HCT 39.3 % (36.0-46.0); HGB 13.2 g/dL (11.2-15.7); Immature Grans % 0.2; Lymphocytes % 32.1; MCH 29.2 pg (27.0-33.0); MCHC 33.6 % (32.0-36.0); MCV 87 fL (80-95); MPV 10.7 fL (8.0-11.0); Monocytes % 6.1; Neutrophils % 56.3; Platelet Count 264 10^3/uL (130-400); RBC 4.52 10^6/uL (3.93-5.22); RDW 12.3 % (11.7-14.6); RDW-SD 39.5 fL; WBC 5.11 10^3/uL (4.4-10.8)
[2023-06-07 13:17] LABS: ALT 29 U/L (14-59); AST 9 U/L (15-37); Albumin 3.8 g/dL (3.4-5.0); Alkaline Phosphatase 47 U/L (46-116); Anion Gap 6.7 mmol/L (3-11); BUN 16 mg/dL (7-18); Bilirubin, Total 0.3 mg/dL (0.2-1.0); CO2 27.3 mmol/L (21.0-32.0); CREATININE 0.8 mg/dL (0.55-1.02); Calcium 8.7 mg/dL (8.5-10.1); Chloride 103 mmol/L (98-107); Glucose 112 mg/dL (74-106); Potassium 3.8 mmol/L (3.5-5.1); Sodium 137 mmol/L (136-145)
[2023-06-07 13:19] LABS: HCG Quant, Pregnancy < 1 mIU/mL (1-3)
[2023-06-07] MEDS: Ondansetron O.D.T. 4 MG TABEF PO (13:28)
[2023-06-07 15:50] VITALS: BP 115/71; PULSE 71; RESP 18; O2SAT 99
== END 2023-06-07 15:50 | disposition home or self-care (01) ==
PROVIDERS: Emergency Provider Student in an Organized Health Care Education/Training Program; PCP Family Medicine
DX: N93.8 Other specified abnormal uterine and vaginal bleeding (principal)
CPT/HCPCS: 36415; 80053; 99284; 76830; 76856; 84702; 85025

== ENCOUNTER 2023-06-18 17:35 | Outpatient (CLI) | payer MEDICAID, SELFPAY ==
[2023-06-18 16:16] LABS: LDH 142 U/L (81-234)
[2023-06-18 22:22] LABS: Estradiol 37 pg/mL (See Note)
[2023-06-19 09:19] LABS: AFP Tumor Marker <2.5 ng/mL (<8.1)
[2023-06-20 11:08] LABS: Beta-HCG, Quant, Tumor Marker <0.6 IU/L
[2023-06-21 13:58] LABS: Dehydroepiandrosterone (DHEA) 3.4 ng/mL (<13)
== END 2023-06-18 17:36 | disposition home or self-care (01) ==
LOC: LBO 17:35
PROVIDERS: PCP Family Medicine; Visit Provider Obstetrics & Gynecology Gynecology
DX: D27.1 Benign neoplasm of left ovary (principal); N83.202 Unspecified ovarian cyst, left side
CPT/HCPCS: 36415; 82105; 82626; 82670; 83615; 84702

== ENCOUNTER 2025-04-30 21:05 | Outpatient (REF) | payer SELFPAY ==
[2025-04-30 22:05] LABS: RBC Negative HPF (0-2)
== END 2025-04-30 21:06 | disposition home or self-care (01) ==
LOC: LBN 21:05
PROVIDERS: PCP Family Medicine
DX: N30.00 Acute cystitis without hematuria (principal)
CPT/HCPCS: 87077; 81015; 87086

== ENCOUNTER → 2025-07-05 02:16 | Outpatient (CLI) | payer OTHER, SELFPAY ==
--- NOTE | 2025-07-05 | DI.MRI_ITS ---
Exam(s) MR PELVIS WO/W EXAM: MR PELVIS WO/W CLINICAL HISTORY: OVARIAN MASS RT, N83.9, OVARIAN MASS LT, N83.8 TECHNIQUE: Multiplanar multisequence MRI of the Abdomen was performed. CONTRAST MATERIAL: IV Contrast: mL of Dotarem contrast administered. COMPARISON: CT CT ABDOMEN PELVIS W from 10/02/2020 US US PELVIS TRANSVAGINAL from 05/27/2025 FINDINGS: Uterus: The uterus is unremarkable. There is no evidence of a uterine mass. The endometrium appears grossly unremarkable. There is an IUD which is in good position. Right ovary: The right ovary measures 7.0 transverse by 6.8 AP by 6.9 craniocaudad cm. There is again seen a cystic lesion on the right ovary measuring 6.8 transverse by 6.1 AP by 6.5 craniocaudad cm. The mass shows predominantly fluid signal. There is a component posteriorly measuring 3.1 x 1.7 cm which shows hyperintense signal on both the T1 and T2 weighted images and loses signal on the fat suppressed images. Left ovary: The left ovary measures 5.7 transverse by 2.9 AP by 4 cm craniocaudad. There are several small follicles present. There is a complex predominantly cystic mass seen in the left ovary posteriorly measuring 3.3 transverse by 2.6 cm AP x 2.9 cm craniocaudad. Internal solid nodular component is seen to the cystic lesion. Following contrast administration there is some enhancement of the solid nodular component of the left ovary. Urinary bladder: Unremarkable. Bowel: There is no evidence of bowel obstruction or bowel wall thickening. Lymph nodes: Unremarkable. Vasculature: Unremarkable. Soft Tissues: Unremarkable. Bone: Unremarkable. IMPRESSION: Bilateral complex ovarian masses. The large right ovarian lesion has both fat and fluid containing components raising the question of an ovarian dermoid. The left ovarian lesion has cystic and solid components and shows some enhancement of its solid component. Differential considerations should also include dermoid or neoplasm gynecologic consult is recommended. DATA REPOSITORY:
[2025-07-05] MEDS: Gadoterate meglumine 20 ML SYRINGE IVP (09:54)
[2025-07-05] MEDS: Normal Saline Flush 10 ML SYR IVP (09:54)
== END ==
LOC: DI 02:16
PROVIDERS: PCP Family Medicine; Visit Provider Family Medicine
DX: N83.8 Other noninflammatory disorders of ovary, fallopian tube and broad ligament
CPT/HCPCS: 72197

== ENCOUNTER 2025-07-23 10:33 | Outpatient (CLI) | payer OTHER, SELFPAY ==
[2025-07-23 19:17] LABS: CEA <0.5 ng/mL (See Note)
[2025-07-23 19:50] LABS: CA 125 10 U/mL (<30); CA 19-9 3 U/mL (<35)
[2025-07-26 11:03] LABS: Beta-HCG, Quant, Tumor Marker <0.6 IU/L
[2025-07-26 20:58] LABS: HE4 42 pmol/L (<=140)
[2025-07-28 14:48] LABS: Inhibin A, Tumor Marker 7.7 pg/mL
[2025-07-31 19:29] LABS: Testosterone, Free 4.9 pg/mL (0.1-6.4)
== END 2025-07-23 10:34 | disposition home or self-care (01) ==
LOC: LBO 10:33
PROVIDERS: PCP Family Medicine; Visit Provider Obstetrics & Gynecology
DX: N94.89 Other specified conditions associated with female genital organs and menstrual cycle (principal)
CPT/HCPCS: 36415; 84402; 84403; 86304; 86305; 86336; 82105; 82378; 84702; 86301